=== PATIENT | female | born 1985 | race African-American/Black ===

== ENCOUNTER 2017-03-16 20:00 | Emergency (ER) | payer OTHER ==
[~2017-03-16] VITALS: Ht 167.6 cm; Wt 91.2 kg
--- NOTE | ~2017-03-16 | EKG ---
[place] [address] [facility] [place] [address] ELECTROCARDIOGRAM REPORT Name: CHUCKCatarina Augustin Room #: [facility]#: [id number] Admission: 03/16/17 Attend Phys: Discharge: 03/16/17 Date of : 81 Report #: [id number] THIS REPORT FOR: //name// [facility] ED Test Date: 2017-03-16 Test Time: 20:13:53 Pat Name: ODELL ONTIVEROS Department: Room: Gender: [employer] Department Chair: VINCENT : 1985 Requested By: Jimmie Real Order Number: [id number] MD: Michael Landa Measurements Intervals [place] Rate: 84 P: 59 AK: 144 QRS: 35 QRSD: 75 T: -1 QT: 338 QTc: 400 Interpretive Statements Sinus rhythm No significant abnormality No previous ECG available for comparison Electronically Signed On 03-17-2017 9:03:29 CDT by Michael Landa [email or web address] <ELECTRONICALLY SIGNED> By: Michael Landa MD, [facility] 03/17/17 0903 12 12 Michael Landa MD, FACC /EPI
[2017-03-16] MEDS ORDERED: ALKA-SELTZER D1 EACH (20:17)
[2017-03-16 21:24] LABS: ABSOLUTE NEUTROPHILS 7.7 thou/uL (1.4-8.2); BASOPHILS 0.8 % (0.0-2.0); EOSINOPHILS 1.4 % (0.0-3.0); HEMATOCRIT 40.9 % (37.0-47.0); HEMOGLOBIN 13.4 gm/dL (12.0-15.0); LYMPHOCYTES 29.6 % (24.0-44.0); MCH 28.6 pg (26.0-34.0); MCHC 32.9 g/dL (28.0-37.0); MCV 86.8 fL (80.0-100.0); MONOCYTES 8.3 % (1.0-8.0); PLATELET COUNT 259 thou/uL (150-400); POLYS 59.9 % (36.0-66.0); RBC 4.71 mil/uL (4.20-5.00); RDW 14.5 % (10.5-14.5); WBC 12.9 thou/uL (4.0-11.0)
[2017-03-16 21:27] LABS: MANUAL DIFF NO
[2017-03-16 21:29] LABS: ANION GAP 6 mmol/L (7-16); BUN 9 mg/dL (7-18); CALCIUM 8.6 mg/dL (8.5-10.1); CHLORIDE 106 mmol/L (98-107); CO2 26 mmol/L (21-32); CREATININE 0.8 mg/dL (0.6-1.0); GLUCOSE 108 mg/dL (74-106); POTASSIUM 3.6 mmol/L (3.5-5.1); SODIUM 138 mmol/L (136-145)
[2017-03-16 21:36] LABS: ALBUMIN 3.4 g/dL (3.4-5.0); ALKALINE PHOSPHATASE 51 U/L (46-116); SGOT 13 U/L (15-37); SGPT 19 U/L (30-65); TOTAL BILIRUBIN 0.2 mg/dL (<0.1-1.0); TOTAL PROTEIN 7.4 g/dL (6.4-8.2); TROPONIN-I < 0.04 ng/mL (<0.04-0.07)
[2017-03-16] MEDS ORDERED: CARAFATE 1 GM TA1 G1 PO (21:42)
[2017-03-16] MEDS ORDERED: PEPCID20 MG PO (21:42)
[2017-03-16 22:19] VITALS: BP 135/68
== END 2017-03-16 22:20 | disposition home or self-care (01) ==
LOC: ER 20:00
PROVIDERS: Emergency Medicine
DX: R07.89 Other chest pain (principal); R10.13 Epigastric pain